=== PATIENT | male | born 1980 | race Caucasian/White ===

== ENCOUNTER 2019-06-19 14:35 | Emergency (ER) | payer BC, OTHER ==
[~2019-06-19] VITALS: Ht 180.3 cm; Wt 90.7 kg
[~2019-06-19 14:35] MED LIST: ACHD5005 PO; CLIN-62 PO; DOXY100C2 PO; HYDR-34 PO; SULF1TAB7 PO
[2019-06-19] MEDS ORDERED: QUET200T PO (14:50)
[2019-06-19] MEDS ORDERED: ALPR0.5T PO (14:50)
[2019-06-19 14:56] VITALS: BP 127/93
--- NOTE | 2019-06-19 14:57 | ED General ---
General Chief Complaint: General Problems/Pain Stated Complaint: MEDICATION REACTIONS Nursing Triage Note: PATIENT STATES THAT HE STARTED TAKING SEROQUEL 5 NIGHTS AGO. TODAY HE SAID HE HAD A HARD TIME WAKING UP FOR WORK. TODAY HE HAS BEEN SHAKY, HAD STOMACH PAINS, SWEATING, GAGGING, AND "FEELS FUZZY." [facility] TOLD HIM IT WAS SERIOUS AND TO COME TO ER. Nursing Sepsis Screen: No Definite Risk Source of Information: Patient Exam Limitations: No Limitations History of Present Illness Date Seen by Provider: Jun 19, 2019 Time Seen by Provider: 14:55 Initial Comments To ER with reports of lethargy, this is unusual for him and was so intense that he was late to work. He didn't wake up until 10:30 this morning after his shift and started. He's also been shaky, had intermittent nausea, sweating gagging and "feels fuzzy. He reports a discomfort in his throat when swallowing. He started Seroquel 5 days ago at 50 mg daily then taper up to 100 mg daily, then last night was his first dose at 250 mg. Timing/Duration: 1-2 Days Severity: Moderate Associated Systoms: Other (as above) Allergies and Home Medications Allergies Uncoded Allergies: CATS (Allergy, 12/21/10) Home Medications Hydrocodone Bit/Acetaminophen 1 Each Tablet, 1 EACH PO PRN, (Reported) Patient Home Medication List Home Medication List Reviewed: Yes Review of Systems Review of Systems Constitutional: see HPI EENTM: see HPI Respiratory: no symptoms reported Cardiovascular: no symptoms reported Genitourinary: no symptoms reported Musculoskeletal: no symptoms reported Skin: no symptoms reported Psychiatric/Neurological: See HPI, Anxiety Hematologic/Lymphatic: No Symptoms Reported Immunological/Allergic: no symptoms reported Past Vptlhel-Ejxnbg-Wkuelv Hx Patient Social History Alcohol Use: Occasionally Uses Recreational Drug Use: No (SMOKES 1 PACK/DAY) Smoking Status: Current Everyday Smoker Type Used: Cigarettes 2nd Hand Smoke Exposure: Yes Recent Foreign Travel: No Contact w/Someone Who Travel: No Recent Infectious Disease Expo: No Recent Hopitalizations: Yes (for surgeries--listed below) Past Medical History Surgeries: Yes (abcess removal from buttock 08/2010, ear tubes, hernia repairs) Respiratory: No Cardiac: No Neurological: Yes Reproductive Disorders: No Gastrointestinal: No Musculoskeletal: Yes (also has athlete's foot) Endocrine: No Psychosocial: No Blood Disorders: No Physical Exam Vital Signs Vital Signs - First Documented 06/19/19 14:42 Temp 96.8 Pulse 91 Resp 22 B/P (MAP) 127/93 (104) Pulse Ox 98 Capillary Refill : Less Than 3 Seconds Height, Weight, BMI Height: 5'11.00" Weight: 200lbs. 0oz. [id number]; BMI Method:Stated General Appearance: No Apparent Distress, WD/WN Eyes: Bilateral Eye Normal Inspection, Bilateral Eye PERRL, Bilateral Eye EOMI HEENT: PERRL/EOMI, TMs Normal, Normal ENT Inspection, Pharynx Normal, Other (no foreign body in the throat, he sipping a glass of water he brought with him, able to swallow without regurgitation or other objective troubles. ) Respiratory: Chest Non Tender, Lungs Clear, Normal Breath Sounds Gastrointestinal: Normal Bowel Sounds, Non Tender, Soft Extremity: Normal Capillary Refill, Normal Inspection Neurologic/Psychiatric: Alert, Oriented x3 Skin: Normal Color, Warm/Dry Progress/Results/Core Measures Suspected Sepsis Recent Fever Within 48 Hours: No Infection Criteria Present: None New/Unexplained Altered Menta: No Sepsis Screen: No Definite Risk SIRS Temperature:96.8 Pulse: 91 Respiratory Rate: 22 Blood Pressure 127 /93 Mean: 104 Results/Orders Vital Signs/I&O 06/19/19 06/19/19 14:42 14:56 Temp 96.8 96.8 Pulse 91 91 Resp 22 22 B/P (MAP) 127/93 (104) 127/93 (104) Pulse Ox 98 98 Capillary Refill : Less Than 3 Seconds Blood Pressure Mean: 104 Departure Impression Primary Impression: Extrapyramidal symptom Disposition: 01 HOME, SELF-CARE Condition: Stable Departure-Patient Inst. Decision time for Depature: 14:56 Referrals: [facility][1[facility] (PCP) Primary Care Physician CLINT LAWSON (Family) Primary Care Physician Patient Instructions: MEDICATION REACTION Add. Discharge Instructions: 1. This is not an allergic reaction but it is a side effect of your medication. Go home and take 1-2 Benadryl, I suspect this will resolve the sensation of discomfort with swallowing in your throat. Reduce your Seroquel dosage to 100 mg daily until you follow up with your mental health provider. If your symptoms continue to progress even at 100 mg daily then simply stop the Seroquel. Return to ER for any concerns. All discharge instructions reviewed with patient and/or family. Voiced underst anding. [employer] Jun 19, 2019 14:57
== END 2019-06-19 15:00 | disposition home or self-care (01) ==
LOC: EDUNIT# 14:35 → ER 14:38
DX: G25.9 Extrapyramidal and movement disorder, unspecified (principal); F17.210 Nicotine dependence, cigarettes, uncomplicated
CPT/HCPCS: 99281

== ENCOUNTER → 2019-10-01 | Outpatient (CLI) | payer BC ==
[~2019-10-01] MED LIST changes: +ALPR0.5T PO; +QUET200T PO
--- NOTE | 2019-10-01 16:50 | Diagnostic Imaging Report ---
PROCEDURE: MRI right joint lower extremity without contrast. TECHNIQUE: Multiplanar, multisequence non contrast-enhanced MRI of the right lower extremity was accomplished. INDICATION: Twisted knee. Now has persistent pain. EXAMINATION: Right knee from 10/01/2019. FINDINGS: The extensor mechanism, PCL, lateral collateral ligamentous complex intact. The MCL is intact. ACL contains some internal T2 hyperintensity but appears intact and the signal changes are likely within normal limits or due to mild degenerative signal. Medial meniscus is intact. The lateral meniscus also intact. Minimal internal hyperintensity anterior horn of the lateral meniscus most likely on the basis of myxoid degeneration. The cartilage within the medial and lateral joint compartments is fairly well preserved. Patellofemoral cartilage unremarkable. There is small amount of joint fluid present. Tiny Young's cyst is also seen. Mild nonspecific subcutaneous edema is seen in the anterior aspect of the knee. IMPRESSION: 1. Ligaments and tendons intact with degenerative signal seen throughout the ACL but no discontinuity. 2. Menisci intact. 3. Tiny joint effusion with cartilage throughout the joint intact. Other incidental findings as above. Dictated by: Dictated on workstation # [id number]
== END ==
LOC: RAD 15:41
PROVIDERS: ATTEND Nurse Practitioner Community Health
DX: M17.11 Unilateral primary osteoarthritis, right knee (principal); X50.1XXA Overexertion from prolonged static or awkward postures, initial encounter
CPT/HCPCS: 73721